=== PATIENT | female | born 1995 | race Hispanic/Latino ===

== ENCOUNTER 2016-12-02 07:56 | Emergency (ER) | payer OTHER ==
[~2016-12-02] VITALS: Ht 165.1 cm; Wt 90.7 kg
[~2016-12-02 07:56] MED LIST: ALBUTEROL0.09 MG/A1 INH; AMOXICILLIN500 M1 PO; BENTYL10 M1 PO; CIPRO 250MG250 MG PO; MEDROL DOSEPAK1 PAC PO; ROBITUSSIN W/CO10 ML PO; TESSALON PERLE100 MG PO; VIBRAMYCIN100 MG PO; ZOFRAN4 M1 SL; ZOFRAN4 M2 PO
--- NOTE | 2016-12-02 08:17 | ED GENERAL ADULT ---
History of Present Illness General Chief Complaint: Abdominal Pain/Flank Pain Stated Complaint: ABD PAIN Vital Signs & Intake/Output Vital Signs & Intake/Output Vital Signs Date Time Temp Pulse Resp B/P Pulse O2 O2 Flow FiO2 Ox Delivery Rate 12/02 807 98.5 97 20 110/70 97 Room Air Room Air Allergies Coded Allergies: NO KNOWN ALLERGIES (05/05/16) Reconcile Medications Albuterol Sulfate (Albuterol Sulfate Hfa) 0.09 MG/Actuation HERNANDO 2 PUFF INH Q4- 6 PRN PRN SHORTNESS OF BREATH 90 MCG PER PUFF Amoxicillin 500 MG TAB 1 TAB PO BID ABSCESS Benzonatate (Tessalon Perle) 100 MG SGL 1 TAB PO TID COUGH Ciprofloxacin (Ciprofloxacin HCl) 250 MG TAB 1 TAB PO BID UTI Dicyclomine Hydrochloride (Bentyl) 10 MG CAPSULE 1 CAP PO TID PRN ABDOMINAL PAIN Doxycycline Hyclate (Vibramycin) 100 MG CAPSULE 1 CAP PO BID chalmydia Methylprednisolone. (Medrol) 1 PAC PAC 1 PAC PO AD INFLAMMATION Ondansetron (Zofran Odt) 4 MG ODT 1 TAB SL Q4-6 PRN NAUSEA Ondansetron HCl (Zofran) 4 MG TABLET 1 TAB PO Q6-8P PRN NAUSEA Triage Note: PT TO ED WITH C/O LOW ABD PAIN TO LEFT BACK SINCE LAST NIGHT, THIS AM NAUSEAUS AND PAIN IS WORSE. LAST MENSES 11/16/16. DENIES V/D. DENIES URINARY PAIN. 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 Surgical History Surgical History: non-contributory Psychosocial History What is your primary language Iranian Tobacco Use: Current Daily Use Daily Tobacco Use Amount/Type: => 5 Cigarettes daily ETOH Use: denies use Illicit Drug Use: denies illicit drug use Progress Plan of Care: Orders Procedure Date/time Status LIPASE 12/02 822 Active COMPREHENSIVE METABOLIC PANEL 12/02 822 Active CBC WITHOUT DIFFERENTIAL 12/02 822 Active AMYLASE 12/[address] ABD & PELVIS W IV CONTRAST 12/02 822 Active URINE 12/02 08 Active URINALYSIS 12/02 808 Active Current Medications Sig/Kisha Start time Last Medication Dose Stop Time Status Admin Ketorolac 30 MG ONCE ONE 12/02 829 UNVr Tromethamine 12/02 830 (Toradol) Departure Departure Condition: Stable Referrals: SHAKA CORDERO MD (PCP/Family) Departure Forms: Customer Survey General Discharge Information
--- NOTE | 2016-12-02 08:24 | ED GI/GU/ABDOMINAL COMPLAINT ---
History of Present Illness General Chief Complaint: Abdominal Pain/Flank Pain Stated Complaint: ABD PAIN Source: patient Exam Limitations: no limitations Vital Signs & Intake/Output Vital Signs & Intake/Output Vital Signs Date Time Temp Pulse Resp B/P Pulse O2 O2 Flow FiO2 Ox Delivery Rate 12/02 1146 82 16 112/62 99 Room Air 12/02 1038 98.2 80 18 117/60 100 12/02 0808 98.5 97 20 110/70 97 Room Air Room Air Allergies Coded Allergies: NO KNOWN ALLERGIES (05/05/16) Reconcile Medications Albuterol Sulfate (Albuterol Sulfate Hfa) 0.09 MG/Actuation HERNANDO 2 PUFF INH Q4- 6 PRN PRN SHORTNESS OF BREATH 90 MCG PER PUFF Amoxicillin 500 MG TAB 1 TAB PO BID ABSCESS Benzonatate (Tessalon Perle) 100 MG SGL 1 TAB PO TID COUGH Ciprofloxacin (Ciprofloxacin HCl) 250 MG TAB 1 TAB PO BID UTI Ciprofloxacin HCl (Cipro) 500 MG TABLET 1 TAB PO BID DIVERTICULITIS Dicyclomine Hydrochloride (Bentyl) 10 MG CAPSULE 1 CAP PO TID PRN ABDOMINAL PAIN Doxycycline Hyclate (Vibramycin) 100 MG CAPSULE 1 CAP PO BID chalmydia Hydrocodone/Acetaminophen (Hydrocodon-Acetaminophen 5-325) 5 MG-325 MG TABLET 1-2 TAB PO Q4-6 PRN PRN PAIN Methylprednisolone. (Medrol) 1 PAC PAC 1 PAC PO AD INFLAMMATION Metronidazole (Flagyl) 500 MG TABLET 1 TAB PO TID ABD PAIN Ondansetron (Zofran Odt) 4 MG ODT 1 TAB SL Q4-6 PRN NAUSEA Ondansetron HCl (Zofran) 4 MG TABLET 1 TAB PO Q6-8P PRN NAUSEA Triage Note: PT TO ED WITH C/O LOW ABD PAIN TO LEFT BACK SINCE LAST NIGHT, THIS AM NAUSEAUS AND PAIN IS WORSE. LAST MENSES 11/16/16. DENIES V/D. DENIES URINARY PAIN. Triage Nurses Notes Reviewed? yes ? N Is pt currently ? No Onset: Abrupt Duration: hour(s):, constant, continues in ED Timing: recent history Quality/Severity: moderate Location: LOWER ABD Radiation: no radiation Activities at Onset: none Prior Abdominal Problems: none No Modifying Factors: none HPI: 21-year-old female comes into emergency room for further evaluation of lower abdominal pain has been going on since last night. Some associated nausea. Denies any fever chills vomiting. Denies any vaginal discharge or urinary symptoms. Patient has not been sexually active recently. Last menstrual period was 3 weeks ago. (JENAE MILIAN) Past History Travel History Traveled to [place] past 21 day No Medical History Any Pertinent Medical History? 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 No (JENAE MILIAN) Review of Systems Review of Systems Constitutional: Reports: no symptoms. EENTM: Reports: no symptoms. Respiratory: Reports: no symptoms. Cardiovascular: Reports: no symptoms. GI: Reports: see HPI. Genitourinary: Reports: no symptoms. Musculoskeletal: Reports: no symptoms. Skin: Reports: no symptoms. Neurological/Psychological: Reports: no symptoms. Hematologic/Endocrine: Reports: no symptoms. Immunologic/Allergic: Reports: no symptoms. All Other Systems: Reviewed and Negative (JENAE MILIAN) Physical Exam Physical Exam General Appearance: well developed/nourished, alert, mild distress Head: atraumatic, normal appearance Eyes: Bilateral: normal appearance, EOMI. Ears, Nose, Throat, Mouth: hearing grossly normal, moist mucous membrane Neck: normal inspection, full range of motion Respiratory: normal breath sounds, no respiratory distress Cardiovascular: regular rate/rhythm Gastrointestinal: normal bowel sounds, soft, tenderness Back: normal inspection, normal range of motion, NO CVA TENDERNESS Extremities: normal range of motion Neurologic/Psych: awake, alert, oriented x 3, normal gait, normal mood/affect Skin: intact, normal color Core Measures ACS in differential dx? No Severe Sepsis Present: No Septic Shock Present: No (JENAE MILIAN) Progress Differential Diagnosis: AAA, appendicitis, biliary colic, bowel obstruction, colon cancer, cholecystitis, diverticulitis, ectopic , endometritis, gastritis, ischemic bowel, inflamm bowel dis, intrauterine , kidney stone, Yarelis-Jose tear, ovarian cyst, ovarian torsion, pancreatitis, PID/ cervicitis, peptic ulcer, PUD/GERD, perforated viscous, threatened AB, UTI/pyelo Plan of Care: Orders Procedure Date/time Status LIPASE 12/02 822 Complete COMPREHENSIVE METABOLIC PANEL 12/02 822 Complete CBC WITHOUT DIFFERENTIAL 12/02 822 Complete AMYLASE 12/02 822 Complete URINE 12/02 808 Complete URINALYSIS 12/02 808 Complete Laboratory Tests 12/02/16 0904: CBC w Diff NO MAN DIFF REQ, RBC 4.70, MCV 85.4, MCH 28.6, RDW 14.3, MPV 8.7, Gran % 77.8 H, Lymphocytes % 13.5 L, Monocytes % 5.6, Eosinophils % 2.7, Basophils % 0.4, Absolute Granulocytes 11.7 H, Absolute Lymphocytes 2.0, Absolute Monocytes 0.8 H, Absolute Eosinophils 0.4, Absolute Basophils 0.1, PUBS MCHC 33.5 12/02/16 0835: Anion Gap 9, Estimated GFR > 60, BUN/Creatinine Ratio 18.3, Glucose 95, Calcium 9.5, Total Bilirubin 1.0, AST 16, ALT 32, Alkaline Phosphatase 101, Total Protein 7.0, Albumin 4.1, Globulin 2.9, Albumin/Globulin Ratio 1.4, Amylase 38, Lipase 46 12/02/16822: Urinalysis LIGHT H, Urine Color YEL, Urine Clarity HAZY H, Urine pH 7.0, Ur Specific Banco 1.020, Urine Protein TRACE H, Urine Ketones NEG, Urine Nitrite NEG, Urine Bilirubin NEG, Urine Urobilinogen 0.2, Ur Leukocyte Esterase NEG, Ur Microscopic SEDIMENT EXAMINED, Urine RBC 5-10 H, Urine WBC RARE, Ur Epithelial Cells MOD H, Urine Hemoglobin SMALL H, Urine Glucose NEG, Urine Test NEGATIVE Diagnostic Imaging: Viewed by Me: CT Scan. Discussed w/RAD: CT Scan. Radiology Impression: SERVICE DATE: 12/02/16 EXAM TYPE: CAT - CT ABD & PELVIS W IV CONTRAST EXAMINATION: CT ABDOMEN AND PELVIS WITH CONTRAST CLINICAL INFORMATION: Lower abdominal pain that radiates into the back. COMPARISON: CT scan of the abdomen and pelvis 10/15/2013. TECHNIQUE: Multidetector volumetric imaging was performed of the abdomen and pelvis before and after the IV administration of 94 mL of Optiray 320 intravenous contrast. Sagittal and coronal reformatted images were obtained on the technologist's workstation. DLP: 573.06 mGy-cm. FINDINGS: Lung bases are clear. There is no pleural or pericardial effusion. Liver attenuation is homogeneous with the exception of focal fatty infiltration within the right lobe adjacent to the round ligament. The gallbladder is normal. No cholelithiasis. No intrahepatic or extrahepatic biliary ductal dilatation. The spleen and pancreas are normal. Adrenal glands are normal. The kidneys demonstrate symmetric nephrographic enhancement. There is no discrete renal mass or cyst. No hydroureteronephrosis. No abnormal mass or calcifications visualized along the expected course of the right or left ureter. The urinary bladder is decompressed. There is a mild degree of inflammatory stranding visualized within the retroperitoneal fat along side the descending colon for instance best visualized on axial image 50 of 90 series 2 and there appears to be mild nonspecific circumferential thickening within the descending colon. There is no discrete drainable fluid collection. No free intraperitoneal air or fluid. A few scattered diverticula are visualized within the transverse colon, descending colon, and sigmoid colon. The stomach and small bowel are normal. A few scattered nonspecific mesenteric lymph nodes are noted. The appendix is not definitively visualized on this examination. There are no worrisome inflammatory changes within the right lower quadrant to suggest acute appendicitis. The abdominal wall is intact with the exception of a tiny fat- containing umbilical hernia. There is an anteverted uterus. Fluid fills the endometrial cavity. There are a few right and left adnexal cysts. The dominant right adnexal cyst measures 3.9 cm in maximal transaxial dimension. The abdominal aorta and inferior vena cava are unremarkable. There is no acute osseous finding. No worrisome lytic or blastic osseous lesion. Grossly there is no evidence of bony canal or neuroforaminal compromise. IMPRESSION: There is a linear distribution of inflammatory changes within the retroperitoneal fat along side a thickened descending colon. There is no discrete drainable fluid collection. No free intraperitoneal air or fluid. Findings may represent a manifestation of acute diverticulitis or colitis. There are a few adnexal cysts that appear largely unchanged when compared to the CT scan of the abdomen and pelvis from 12/16/2012. Fluid fills the endometrial cavity. DICTATED BY: HAL RUEDA,TAMARA Marie DATE/TIME DICTATED:12/02/162 DIRECTOR OF CORPORATE SALES:VONDA DATE /TIME TRANSCRIBED:12/02/161041 Initial ED EKG: none (KATIE FAYE,JENAE) Departure Departure Disposition: HOME OR SELF CARE Condition: Stable Clinical Impression Primary Impression: Acute diverticulitis Referrals: SHAKA CORDERO MD (PCP/Family) MARCO ANTONIO RUEDA,GLENYS Mir Additional Instructions: Take ciprofloxacin, Flagyl, and Vicodin as prescribed. Follow-up with emergency department provided. After he finished her course of oral antibiotics YOU need to increase the amount of fiber in your diet significantly. Avoid seeded foods. Return if any other concerns worsening symptoms. Do not drink alcohol while taking the Flagyl. Please go over all results of today's visit with your primary care doctor. Contact your primary care doctor to let them know you were here in the emergency room. There may be nonspecific findings which may not be related to your visit today here in the emergency room but may require further evaluation and chronic monitoring by your primary care doctor. If you had a laceration today the chance of foreign body always remains. You should follow-up with your primary care doctor for recheck in 3-5 days for a wound check. If you had an x-ray done there is a chance that a fracture could have been missed on initial read and you should follow-up with your primary care doctor for repeat x-rays if symptoms persist. If your blood pressure was elevated here in the emergency room please have rechecked by her primary care doctor within the next 48 hours by your primary care doctor. If you were prescribed a narcotic here in the emergency room or any type of controlled substances you're not allowed to drive while taking this medication or operate any type of heavy machinery. Narcotics can make you feel lightheaded dizziness nausea and can cause constipation. You may need to meat pickler a stool softener. Thank you for choosing [facility] emergency room. Please return to the emergency room immediately if you have any other concerns worsening of symptoms. Departure Forms: Customer Survey General Discharge Information Prescriptions: Current Visit Scripts Metronidazole (Flagyl) 1 TAB PO TID #30 TAB Ciprofloxacin HCl (Cipro) 1 TAB PO BID #20 TAB Hydrocodone/Acetaminophen (Hydrocodon-Acetaminophen 5-325) 1-2 TAB PO Q4-6 PRN PRN PAIN #10 TAB Comments 12/02/2016 2:41:33 PM Patient clinically looks well. Nontoxic-appearing. Patient started on oral antibiotics for treatment of diverticulitis. Referred to GI doctor. Return if any concerns. Patient understands and agrees with plan of care. Case discussed with Dr. duff. (JENAE MILIAN) PA/TOOL KEEPER Co-Sign Statement Statement: ED Attending supervision documentation- [] I saw and evaluated the patient. I have also reviewed all the pertinent lab results and diagnostic results. I agree with the findings and the plan of care as documented in the PA's/TOOL KEEPER's documentation. [X] I have reviewed the ED Record and agree with the PA's/TOOL KEEPER's documentation. [] Additions or exceptions (if any) to the PAs/TOOL KEEPER's note and plan are summarized below: [] (PANDA ROGERS,SCOTTIE Marie)
[2016-12-02 09:15] LABS: ABSOLUTE BASOPHIL COUNT 0.1 /CUMM (0.0-0.2); ABSOLUTE EOSINOPHIL COUNT 0.4 /CUMM (0.0-0.7); ABSOLUTE GRANULOCYTE CT 11.7 /CUMM (1.4-6.5); ABSOLUTE MONOCYTE COUNT 0.8 /CUMM (0.10-0.60); BASOPHIL % 0.4 % (0.0-2.0); EOSINOPHIL % 2.7 % (0-5); GRANULOCYTE % 77.8 % (42.2-75.2); HEMATOCRIT 40.2 % (37-47); MEAN CORPUSCULAR HGB 28.6 PG (27.0-31.0); MEAN CORPUSCULAR HGB CONC 33.5 G/DL (33.0-37.0); MEAN CORPUSCULAR VOLUME 85.4 FL (81.0-99.0); MEAN PLATELET VOLUME 8.7 FL (7.4-10.4); PLATELET COUNT 314 /CUMM (130-400); RBC DISTRIBUTION WIDTH 14.3 % (11.5-14.5); WHITE BLOOD CELL COUNT 15.1 /CUMM (4.8-10.8)
--- NOTE | 2016-12-02 10:59 | CT SCAN REPORT ---
EXAMINATION: CT ABDOMEN AND PELVIS WITH CONTRAST CLINICAL INFORMATION: Lower abdominal pain that radiates into the back. COMPARISON: CT scan of the abdomen and pelvis 10/15/2013. TECHNIQUE: Multidetector volumetric imaging was performed of the abdomen and pelvis before and after the IV administration of 94 mL of Optiray 320 intravenous contrast. Sagittal and coronal reformatted images were obtained on the technologist's workstation. DLP: 573.06 mGy-cm. FINDINGS: Lung bases are clear. There is no pleural or pericardial effusion. Liver attenuation is homogeneous with the exception of focal fatty infiltration within the right lobe adjacent to the round ligament. The gallbladder is normal. No cholelithiasis. No intrahepatic or extrahepatic biliary ductal dilatation. The spleen and pancreas are normal. Adrenal glands are normal. The kidneys demonstrate symmetric nephrographic enhancement. There is no discrete renal mass or cyst. No hydroureteronephrosis. No abnormal mass or calcifications visualized along the expected course of the right or left ureter. The urinary bladder is decompressed. There is a mild degree of inflammatory stranding visualized within the retroperitoneal fat along side the descending colon for instance best visualized on axial image 50 of 90 series 2 and there appears to be mild nonspecific circumferential thickening within the descending colon. There is no discrete drainable fluid collection. No free intraperitoneal air or fluid. A few scattered diverticula are visualized within the transverse colon, descending colon, and sigmoid colon. The stomach and small bowel are normal. A few scattered nonspecific mesenteric lymph nodes are noted. The appendix is not definitively visualized on this examination. There are no worrisome inflammatory changes within the right lower quadrant to suggest acute appendicitis. The abdominal wall is intact with the exception of a tiny fat-containing umbilical hernia. There is an anteverted uterus. Fluid fills the endometrial cavity. There are a few right and left adnexal cysts. The dominant right adnexal cyst measures 3.9 cm in maximal transaxial dimension. The abdominal aorta and inferior vena cava are unremarkable. There is no acute osseous finding. No worrisome lytic or blastic osseous lesion. Grossly there is no evidence of bony canal or neuroforaminal compromise. IMPRESSION: There is a linear distribution of inflammatory changes within the retroperitoneal fat along side a thickened descending colon. There is no discrete drainable fluid collection. No free intraperitoneal air or fluid. Findings may represent a manifestation of acute diverticulitis or colitis. There are a few adnexal cysts that appear largely unchanged when compared to the CT scan of the abdomen and pelvis from 12/16/2012. Fluid fills the endometrial cavity.
[2016-12-02] MEDS ORDERED: CIPRO500 M1 PO (11:17)
[2016-12-02] MEDS ORDERED: HYDROCODON-ACE1 EAC2 PO (11:17)
[2016-12-02] MEDS ORDERED: FLAGYL500 MG PO (11:17)
[2016-12-02 11:46] VITALS: BP 112/62
== END 2016-12-02 11:49 ==
LOC: ERH 07:56
PROVIDERS: Physician Assistant Medical
DX: K57.92 Diverticulitis of intestine, part unspecified, without perforation or abscess without bleeding (principal)
CPT/HCPCS: 74177; 81001; 81025; 96374; J1885

== ENCOUNTER 2017-04-25 13:21 | Emergency (ER) | payer OTHER ==
[~2017-04-25] VITALS: Ht 165.1 cm; Wt 93.0 kg
[~2017-04-25 13:21] MED LIST changes: +CIPRO500 M1 PO; +FLAGYL500 MG PO; +HYDROCODON-ACE1 EAC2 PO
[2017-04-25 15:23] LABS: ABSOLUTE BASOPHIL COUNT 0 /CUMM (0.0-0.2); ABSOLUTE EOSINOPHIL COUNT 0.3 /CUMM (0.0-0.7); ABSOLUTE GRANULOCYTE CT 7.4 /CUMM (1.4-6.5); ABSOLUTE LYMPH COUNT 2.8 /CUMM (1.2-3.4); ABSOLUTE MONOCYTE COUNT 0.5 /CUMM (0.10-0.60); BASOPHIL % 0.4 % (0.0-2.0); GRANULOCYTE % 66.5 % (42.2-75.2); HEMATOCRIT 44.3 % (37-47); MEAN CORPUSCULAR HGB 28.2 PG (27.0-31.0); MEAN CORPUSCULAR HGB CONC 32.8 G/DL (33.0-37.0); MEAN CORPUSCULAR VOLUME 85.8 FL (81.0-99.0); MEAN PLATELET VOLUME 8.8 FL (7.4-10.4); PLATELET COUNT 351 /CUMM (130-400); RBC DISTRIBUTION WIDTH 14.4 % (11.5-14.5); RED BLOOD CELL CT 5.16 /CUMM (4.20-5.40); WHITE BLOOD CELL COUNT 11.1 /CUMM (4.8-10.8)
--- NOTE | 2017-04-25 15:31 | ED CARDIAC/CP/PALPITATIONS ---
History of Present Illness General Chief Complaint: Chest Pain Stated Complaint: CHEST PAIN SINCE SAT Source: patient Exam Limitations: no limitations Vital Signs & Intake/Output Vital Signs & Intake/Output Vital Signs Date Time Temp Pulse Resp B/P B/P Pulse O2 O2 Flow FiO2 Mean Ox Delivery Rate 04/25 1617 96.1 76 131/62 99 Room Air 04/25 1517 72 16 99 Room Air 04/25 1415 98 Room Air 04/25 1334 97.0 77 20 102/68 99 Room Air Allergies Coded Allergies: NO KNOWN ALLERGIES (05/05/16) Reconcile Medications Albuterol Sulfate (Albuterol Sulfate Hfa) 0.09 MG/Actuation HERNANDO 2 PUFF INH Q4- 6 PRN PRN SHORTNESS OF BREATH 90 MCG PER PUFF Amoxicillin 500 MG TAB 1 TAB PO BID ABSCESS Benzonatate (Tessalon Perle) 100 MG SGL 1 TAB PO TID COUGH Ciprofloxacin (Ciprofloxacin HCl) 250 MG TAB 1 TAB PO BID UTI Ciprofloxacin HCl (Cipro) 500 MG TABLET 1 TAB PO BID DIVERTICULITIS Cyclobenzaprine HCl 10 MG TABLET 1 TAB PO TID SPASMS Dicyclomine Hydrochloride (Bentyl) 10 MG CAPSULE 1 CAP PO TID PRN ABDOMINAL PAIN Doxycycline Hyclate (Vibramycin) 100 MG CAPSULE 1 CAP PO BID chalmydia Hydrocodone/Acetaminophen (Hydrocodon-Acetaminophen 5-325) 5 MG-325 MG TABLET 1-2 TAB PO Q4-6 PRN PRN PAIN Ibuprofen 800 MG TABLET 1 TAB PO TID pain Methylprednisolone. (Medrol) 1 PAC PAC 1 PAC PO AD INFLAMMATION Metronidazole (Flagyl) 500 MG TABLET 1 TAB PO TID ABD PAIN Ondansetron (Zofran Odt) 4 MG ODT 1 TAB SL Q4-6 PRN NAUSEA Ondansetron HCl (Zofran) 4 MG TABLET 1 TAB PO Q6-8P PRN NAUSEA Triage Note: PT C/O CP AND SOB SINCE MONDAY. STATES PAIN WITH DEEP INSPIRATION. STATES SHE GETS A SHARP PAIN IN HER RIBS Triage Nurses Notes Reviewed? yes Onset: Abrupt Duration: day(s): (4), constant Timing: recent history Quality/Severity: sharp Location: central Radiation: no radiation Activities at Onset: none Modifying Factors: Worsens With: breathing. : No Patient currently breastfeeds: No HPI: 21-year-old female comes into emergency room with central chest pain has been going on since Monday. Worse with deep breath. Some associated shortness of breath. Denies any fever chills vomiting. Denies any diaphoresis. Denies a prior history of this ever happening in the past. (JENAE MILIAN) Past History Travel History Traveled to [place] past 21 day No Medical History Any Pertinent Medical History? see below for history Neurological: NONE EENT: NONE Cardiovascular: NONE Respiratory: asthma Gastrointestinal: NONE Hepatic: NONE Renal: NONE Musculoskeletal: ABSCESS Psychiatric: NONE Endocrine: NONE Blood Disorders: NONE Cancer(s): NONE GENERAL DUTY NURSE/Reproductive: NONE Surgical History Surgical History: non-contributory Psychosocial History What is your primary language [place] Tobacco Use: Current Daily Use Daily Tobacco Use Amount/Type: => 5 Cigarettes daily ETOH Use: occasional use Illicit Drug Use: denies illicit drug use Family History Hx Contributory? No (JENAE MILIAN) Review of Systems Review of Systems Constitutional: Reports: no symptoms. EENTM: Reports: no symptoms. Respiratory: Reports: see HPI. Cardiovascular: Reports: see HPI. GI: Reports: no symptoms. Genitourinary: Reports: no symptoms. Musculoskeletal: Reports: see HPI. Skin: Reports: no symptoms. Neurological/Psychological: Reports: no symptoms. Hematologic/Endocrine: Reports: no symptoms. Immunologic/Allergic: Reports: no symptoms. All Other Systems: Reviewed and Negative (JENAE MILIAN) Physical Exam Physical Exam General Appearance: well developed/nourished, alert, awake Head: atraumatic, normal appearance Eyes: Bilateral: normal appearance. Ears, Nose, Throat: normal ENT inspection, hearing grossly normal Neck: normal inspection Respiratory: normal breath sounds, no respiratory distress, CHEST WALL TENDERNESS Cardiovascular: regular rate/rhythm Back: normal inspection Extremities: normal inspection, normal range of motion Neurologic/Psych: awake, alert, oriented x 3, normal gait, normal mood/affect Skin: intact, normal color Core Measures ACS in differential dx? Yes Severe Sepsis Present: No Septic Shock Present: No All Positive = PERC Ruled Out: Positive: age < 50 years, heart rate < 100 bpm, O2 sat > 94%, no hemoptysis, no hormone use, no prior DVT or PE, no unilateral leg swellin, no surgery/trauma w/ in 4w. Wells Criteria Score: 0 (JENAE MILIAN) Progress Differential Diagnosis: AMI, aortic dissection, cholecystitis, costochondritis, musculoskeletal pain, myocarditis, pancreatitis, pericarditis, pneumonia, pulmonary embolism, PUD/GERD, rib fracture Plan of Care: Orders Procedure Date/time Status Telemetry/University Counselor 04/25 145 Active TROPONIN LEVEL 04/25 1457 Complete HUMAN BETA HCG SCREEN 04/25 1457 Complete COMPREHENSIVE METABOLIC PANEL 04/25 145 Complete CBC WITHOUT DIFFERENTIAL 04/25 1457 Complete EKG 04/25 1323 Active Laboratory Tests 04/25/17 1510: Anion Gap 12, Estimated GFR > 60, BUN/Creatinine Ratio 20.0, Glucose 81, Calcium 9.9, Total Bilirubin 0.8, AST 19, ALT 31, Alkaline Phosphatase 102, Troponin I < 0.01, Total Protein 7.3, Albumin 4.5, Globulin 2.8, Albumin/Globulin Ratio 1.6, Total Beta HCG NEGATIVE, CBC w Diff NO MAN DIFF REQ, RBC 5.16, MCV 85.8, MCH 28.2, RDW 14.4, MPV 8.8, Gran % 66.5, Lymphocytes % 25.1, Monocytes % 5.0, Eosinophils % 3.0, Basophils % 0.4, Absolute Granulocytes 7.4 H, Absolute Lymphocytes 2.8, Absolute Monocytes 0.5, Absolute Eosinophils 0.3, Absolute Basophils 0, PUBS MCHC 32.8 L Diagnostic Imaging: Viewed by Me: Radiology Read. Discussed w/RAD: Radiology Read. Radiology Impression: SERVICE DATE: 04/25/17-1456 EXAM TYPE: RAD - XRY-CHEST XRAY, PA AND LATERAL EXAMINATION: XR CHEST CLINICAL INFORMATION: Chest pain COMPARISON: Chest x-ray 04/25/2017 TECHNIQUE: 2 views of the chest were obtained. FINDINGS: No significant abnormality is noted involving the heart, lungs, mediastinum, bony thorax or soft tissues. IMPRESSION: Unremarkable examination. Initial ED EKG: normal intervals, normal p-waves, normal QRS complex, normal sinus rhythm, rate (74) Comments: 04/25/2017 4:32:44 PM Chest pain is reproducible. Pain more consistent with musculoskeletal pain. Normal EKG. No suspicion for pulmonary embolism. No cardiac risk factors. Case discussed with Dr. yip. Return if any concerns worsening symptoms. (JENAE MILIAN) Departure Departure Disposition: HOME OR SELF CARE Condition: Stable Clinical Impression Primary Impression: Chest wall pain Referrals: SHAKA CORDERO MD (PCP/Family) Additional Instructions: Take ibuprofen and Flexeril as prescribed. Follow-up with primary care doctor. Return to emergency room if any concerns worsening symptoms. Please go over all results of today's visit with your primary care doctor. Contact your primary care doctor to let them know you were here in the emergency room. There may be nonspecific findings which may not be related to your visit today here in the emergency room but may require further evaluation and chronic monitoring by your primary care doctor. If you had a laceration today the chance of foreign body always remains. You should follow-up with your primary care doctor for recheck in 3-5 days for a wound check. If you had an x-ray done there is a chance that a fracture could have been missed on initial read and you should follow-up with your primary care doctor for repeat x-rays if symptoms persist. If your blood pressure was elevated here in the emergency room please have rechecked by her primary care doctor within the next 48 hours by your primary care doctor. If you were prescribed a narcotic here in the emergency room or any type of controlled substances you're not allowed to drive while taking this medication or operate any type of heavy machinery. Narcotics can make you feel lightheaded dizziness nausea and can cause constipation. You may need to pickers material handlers a stool softener. Thank you for choosing [facility] emergency room. Please return to the emergency room immediately if you have any other concerns worsening of symptoms. Departure Forms: Customer Survey General Discharge Information Prescriptions: Current Visit Scripts Ibuprofen 1 TAB PO TID #30 TAB Cyclobenzaprine HCl 1 TAB PO TID #20 TAB (JENAE MILIAN) PA/PROJECT MANAGER INTERIOR DESIGN Co-Sign Statement Statement: ED Attending supervision documentation- I saw and evaluated the patient. I have also reviewed all the pertinent lab results and diagnostic results. I agree with the findings and the plan of care as documented in the PA's/PROJECT MANAGER INTERIOR DESIGN's documentation. x I have reviewed the ED Record and agree with the PA's/PROJECT MANAGER INTERIOR DESIGN's documentation. [] Additions or exceptions (if any) to the PAs/PROJECT MANAGER INTERIOR DESIGN's note and plan are summarized below: [] (JOSE RUEDA,SHIRIN) Critical Care Note Critical Care Note Critical Care Time: non-applicable (JENAE MILIAN)
--- NOTE | 2017-04-25 16:04 | RADIOLOGY REPORT ---
EXAMINATION: XR CHEST CLINICAL INFORMATION: Chest pain COMPARISON: Chest x-ray 04/25/2017 TECHNIQUE: 2 views of the chest were obtained. FINDINGS: No significant abnormality is noted involving the heart, lungs, mediastinum, bony thorax or soft tissues. IMPRESSION: Unremarkable examination.
[2017-04-25 16:17] VITALS: BP 131/62
[2017-04-25] MEDS ORDERED: CYCLOBENZAPRINE10 M1 PO (16:31)
[2017-04-25] MEDS ORDERED: IBUPROFEN800 M1 PO (16:31)
== END 2017-04-25 16:37 ==
LOC: ERH 13:21
PROVIDERS: Physician Assistant Medical
DX: R07.89 Other chest pain (principal)
CPT/HCPCS: 93005; 93010; 96372; J1885

== ENCOUNTER 2018-03-20 14:40 | Emergency (ER) | payer OTHER ==
[~2018-03-20 14:40] MED LIST changes: +AUGMENTIN 875-1 EACH PO; +CYCLOBENZAPRINE10 M1 PO; +IBUPROFEN600 M1 PO; +IBUPROFEN800 M1 PO; +PREDNISOLO15 MG/5 M4 PO; +TESSALON PERLE100 M1 PO; +VENTOLIN HFA18 GM INH
[2018-03-20 15:06] VITALS: BP 122/80
== END 2018-03-20 17:30 | disposition admitted as inpatient to this hospital (09) ==
LOC: ERH 14:40
DX: R07.9 Chest pain, unspecified (principal)
CPT/HCPCS: 93005; 93010; 99281